=== PATIENT | female | born 1965 ===

== ENCOUNTER 2022-02-10 06:16 | Day surgery (SDC) | payer OTHER ==
[~2022-02-10] VITALS: Ht 170.2 cm; Wt 55.3 kg
[~2022-02-10 06:16] MED LIST: ATORVASTATIN CA10 MG PO
== END 2022-02-10 14:30 | disposition home or self-care (01) ==
LOC: CIR.AMB 06:16 → U 06:16 → CIR.AMB 09:30
PROVIDERS: ATTEND Obstetrics & Gynecology Gynecologic Oncology
DX: N85.00 Endometrial hyperplasia, unspecified (principal); Z20.822 Contact with and (suspected) exposure to COVID-19; Z91.040 Latex allergy status